=== PATIENT | male | born 1945 | race Caucasian/White ===

== ENCOUNTER 2023-06-24 01:13 | Emergency (ER) | payer MEDICARE, SELFPAY ==
--- NOTE | ~2023-06-24 | CT_ITS ---
Noncontrast CT scan of the cervical spine Technique: Multiple contiguous axial [address] images of the cervical spine were obtained and rec onstructed in 2D sagittal and coronal planes on the acquisition scanner. Dose reduction technique was used on this scan by utilizing automated exposure control, adjustment of the mA and/or kV according to patient size. The dose-length product (DLP) was 406.08 mGy-cm. Clinical History: Pain Findings: No fracture identified. There is 3 mm anterolisthesis of C4-C5. There is advanced degenerat rj disc narrowing at C5 over C6. There is mild degenerative disc narrowing the remainder of the cerv ical spine. There is scattered facet joint degenerative changes of the cervical spine. There is bilat eral neural foraminal narrowing at C3-C4. There is right neural foraminal narrowing at C5-C6. No prev ertebral soft tissue swelling. Impression: No fracture. 3 mm anterolisthesis of C4-C5. Degenerative change, as above. Reviewed, dictated and finalized at [facility]. Impression: No fracture. 3 mm anterolisthesis of C4-C5. Degenerative change, as above.
--- NOTE | ~2023-06-24 | XR_ITS ---
Portable chest x-ray Comparison: None Clinical History: Status post fall Findings: Lungs are clear, without focal consolidation or pleural effusion. Cardiomediastinal silho uette is stable. Probable calcified left hilar lymph node. Bones and soft tissues are unremarkable. Impression: Clear lungs. Reviewed, dictated and finalized at [facility]. Impression: Clear lungs.
--- NOTE | ~2023-06-24 | CT_ITS ---
CT head without contrast Indication: Head injury Technique: Serial scans were obtained through the brain without the administration of contrast. Dose reduction technique was used on this scan by utilizing automated exposure control and iterative recon struction technique. The dose-length product (DLP) was 605.33 mGy-cm. Findings: There is no evidence of intracranial hemorrhage, mass lesion, or acute infarct. The ventri cles and subarachnoid spaces are dilated, consistent with mild atrophy. Low attenuation regions are seen within the periventricular white matter bilaterally, likely representing changes from chronic mi crovascular ischemic disease. There is no evidence of edema, mass effect or midline shift. The visu alized paranasal sinuses and mastoid air cells are clear. Impression: No intracranial hemorrhage, mass, or acute infarct. Atrophy and chronic white matter changes, as above. Reviewed, dictated and finalized at location . Impression: No intracranial hemorrhage, mass, or acute infarct. Atrophy and chronic white matter changes, as above.
[2023-06-24 01:10] VITALS: BP 148/90; PULSE 72; RESP 15; TEMP 36.6; O2SAT 98
--- NOTE | 2023-06-24 01:34 | ECG_ITS ---
Measurements Intervals [place] Rate: 69 P: 15 [place]: 164 QRS: -36 QRSD: 97 T: 52 QT: 411 QTc: 440 Interpretive Statements SINUS RHYTHM ATRIAL PREMATURE COMPLEX LEFT AXIS DEVIATION LEFT VENTRICULAR HYPERTROPHY AND ST-T CHANGE BORDERLINE R WAVE PROGRESSION, ANTERIOR LEADS INFERIOR INFARCT, AGE INDETERMINATE BORDERLINE T WAVE ABNORMALITY- LATERAL LEADS BASELINE WANDER- I, III, V4-V6 ABNORMAL ECG NO PREVIOUS ECG AVAILABLE FOR COMPARISON Electronically Signed On 06-24-2023 6:38:28 CDT by Josue Orozco D.O.
--- NOTE | 2023-06-24 02:06 | ED.GENADULT ---
HPI - General Adult General Chief complaint: Fall Stated complaint: glf Time Seen by Provider: 06/24/23 01:24 History of Present Illness HPI narrative: Patient is a 78-year-old gentleman who presents emergency department with chief complaint of fall he patient states that he does not think he had a syncopal episode but does not remember actually falling fell and struck his head. Patient reports his laceration scalp so unsure of his last tetanus status. Related Data Allergies Allergy/AdvReac Type Severity Reaction Status Date / Time No Known Allergies Allergy Verified 06/24/23 01:17 Review of Systems Review of Systems: A 10 system review of systems was completed on the patient and is negative except for what is stated in the HPI. Nursing and ancillary documentation was reviewed. Exam Narrative: GENERAL: Well-appearing, well-nourished, and in no acute distress. HEAD: Normocephalic, small laceration on the occipital region of the scalp on the left side. EYES: PERRLA and EOMI. ENT: Nares clear, no rhinorrhea or epistaxis. Mucous membranes moist. NECK: Supple. CHEST: Clear to auscultation. No respiratory distress. HEART: Regular rate and rhythm. No murmur heard. Normal peripheral pulses. ABDOMEN: Soft, nontender, nondistended, normal active bowel sounds. EXTREMITIES: Normal range of motion. No edema. SKIN: Warm, dry, no rash. NEURO: No focal deficits. Alert and oriented x3. PSYCH: Normal mood and affect. Course Vital Signs Vital signs: Vital Signs Temperature 36.6 C 06/24/23 01:10 Pulse Rate 72 06/24/23 01:10 Respiratory Rate 15 06/24/23 01:10 Blood Pressure 148/90 H 06/24/23 01:10 Pulse Oximetry 98 06/24/23 01:10 Oxygen Delivery Room Air 06/24/23 01:10 Temperature 36.6 C 06/24/23 01:10 Pulse Rate 72 06/24/23 01:10 Respiratory Rate 15 06/24/23 01:10 Blood Pressure 148/90 H 06/24/23 01:10 Pulse Oximetry 98 06/24/23 01:10 Oxygen Delivery Room Air 06/24/23 01:10 Procedures Laceration Laceration 1: Date: 06/24/23 Time: 02:40 Site: scalp Side (If applicable): left Size (cm): 3 Description: linear Depth: simple, single layer Local Anesthetic: none Pre-repair: wound explored, irrigated and irrigated extensively ====== Skin Level ====== Skin layer closed with: yahir Number of sutures: 3 ====== Subcutaneous Layer ====== ====== Muscle Layer ====== ====== Tendon Layer ====== Medical Decision Making MDM Narrative Medical decision making narrative: Differential diagnosis includes intracranial injury, cervical spine fracture, electrolyte abnormality, ACS, dehydration, NICOLA Laboratory studies were obtained which were within normal limits troponin was negative EKG shows no acute ischemic changes CT of the head CT C-spine showed no evidence of acute fracture or evidence of intracranial hemorrhage. Vital Signs Vital Signs: Vital Signs Temperature 36.6 C 06/24/23 01:10 Pulse Rate 72 06/24/23 01:10 Respiratory Rate 15 06/24/23 01:10 Blood Pressure 148/90 H 06/24/23 01:10 Pulse Oximetry 98 06/24/23 01:10 Oxygen Delivery Room Air 06/24/23 01:10 Temperature 36.6 C 06/24/23 01:10 Pulse Rate 72 06/24/23 01:10 Respiratory Rate 15 06/24/23 01:10 Blood Pressure 148/90 H 06/24/23 01:10 Pulse Oximetry 98 06/24/23 01:10 Oxygen Delivery Room Air 06/24/23 01:10 Lab Data 06/24/23 02:22 06/24/23 02:22 Labs: Lab Results 06/24/23 Range/Units 02:22 WBC 5.1 (4.5-10.0) K/mm3 RBC 4.45 L (4.6-6.20) M/mm3 Hgb 14.2 (14.0-18.0) g/dL Hct 42.7 (42.0-52.0) % MCV 96.0 (80-100) fl MCH 31.9 (26-34) pg MCHC 33.3 (32-36) g/dl RDW 13.1 (11.5-14.5) % Plt Count 190 (150-375) k/mm3 MPV 9.6 (7.4-10.4) fl Immature Gran % (Auto) 0.6 H (0-0.5) % Neut % (Auto) 61.9 (45.5-73
[2023-06-24] MEDS: TETANUS,DIPHTHERIA,AC PERTUSSIS ADULT (0.5 ML) BOOSTRIX IM (02:23)
[2023-06-24 02:40] LABS: Basophils Percent Auto 0.4 % (0.2-1.2); Eosinophils Absolute Auto 0.3 K/mm3 (0-0.3); Eosinophils Percent Auto 5.1 % (0-4.4); Hematocrit 42.7 % (42.0-52.0); Hemoglobin 14.2 g/dL (14.0-18.0); Immature Granulocyte Absolute 0.03 K/mm3 (0.00-0.031); Immature Granulocyte Percent A 0.6 % (0-0.5); Lymphocytes Absolute Auto 0.89 K/mm3 (0.9-3.2); Lymphocytes Percent Auto 17.4 % (18.3-44.2); Mean Corpuscular HGB Conc 33.3 g/dl (32-36); Mean Corpuscular Hemoglobin 31.9 pg (26-34); Mean Platelet Volume 9.6 fl (7.4-10.4); Monocytes Absolute Auto 0.8 K/mm3 (0.1-0.6); Monocytes Percent Auto 14.6 % (2.6-8.5); Neutrophils Absolute Auto 3.2 K/mm3 (1.3-6.7); Neutrophils Percent Auto 61.9 % (45.5-73.1); Platelet Count Result 190 k/mm3 (150-375); Red Blood Count 4.45 M/mm3 (4.6-6.20); Red Cell Distribution Width 13.1 % (11.5-14.5); White Blood Count 5.1 K/mm3 (4.5-10.0)
[2023-06-24 02:51] LABS: Alanine Aminotransferase 22 U/L (6-50); Albumin Level 4.7 g/dL (3.5-5.1); Alkaline Phosphatase 116 U/L (38-126); Anion Gap 12 mmol/L (8-16); Aspartate Amino Transferase 35 U/L (17-59); Bilirubin,Total 0.6 mg/dL (0.2-1.3); Blood Urea Nitrogen 10 mg/dL (9-20); Calcium 9.2 mg/dL (8.4-10.2); Carbon Dioxide 24 mmol/L (22-30); Chloride 107 mmol/L (98-107); Estimated CRCL calculation 74 ml/min; Estimated Glomerular Filt Rate > 60; Glucose 99 mg/dL (65-110); INR 0.9; Magnesium 2.2 mg/dL (1.6-2.3); Potassium 3.7 mmol/L (3.4-5.0); Prothrombin Time 12.9 Seconds (11.1-14.7); Sodium 143 mmol/L (137-145)
[2023-06-24 02:52] LABS: Partial Thromboplastin Time 31.8 Seconds (22.3-36.8)
[2023-06-24 03:03] LABS: Troponin I < 0.012 ng/mL (0.000-0.034)
[2023-06-24 03:43] VITALS: BP 156/84; PULSE 66; RESP 15; O2SAT 98
== END 2023-06-24 03:43 | disposition home or self-care (01) ==
PROVIDERS: Emergency Provider Emergency Medicine; PCP Internal Medicine
DX: S01.01XA Laceration without foreign body of scalp, initial encounter (principal); Z23 Encounter for immunization; I49.1 Atrial premature depolarization; I51.7 Cardiomegaly; R94.31 Abnormal electrocardiogram [ECG] [EKG]; W01.198A Fall on same level from slipping, tripping and stumbling with subsequent striking against other object, initial encounter
CPT/HCPCS: 12002; 36415; 70450; 71045; 72125; 80053; 83735; 84484; 85025; 85610; 85730; 90471; 90715; 93005; 99284